=== PATIENT | male | born 1990 | race Hispanic/Latino ===

== ENCOUNTER 2019-06-10 20:37 | Emergency (ER) | payer SELFPAY ==
[2019-06-10 22:04] LABS: Absolute Lymphocytes (CBC) 1.5 K/uL (0.7-4.9); Basophils % 0.2 % (0-1.3); Hematocrit 43.2 % (39.6-49.0); Lymphocytes % 12.9 % (15.3-44.8); MPV 8.1 fL (7.6-11.3); RBC Red Blood Cell Count 4.89 M/uL (4.33-5.43)
[2019-06-10] MEDS ORDERED: NA CHLORIDE 0.9% 1,000 ML ONE ×2 (22:08→22:57)
[2019-06-10] MEDS ORDERED: DICYCLOMINE HCL 10 MG CAP ONE (22:08)
[2019-06-10 22:16] LABS: Bilirubin Direct 0.1 mg/dL (0-0.2); Bilirubin Total 0.4 mg/dL (0.2-1.0); Potassium 3.7 mmol/L (3.5-5.1); Protein, Total 7.3 g/dL (6.4-8.2)
--- NOTE | 2019-06-10 23:33 | ER ---
Nurse's Notes [facility] Name: Cindi Azevedo Age: 28 yrs Sex: Male : 1990 Arrival Date: 06/10/2019 Time: 20:39 Bed 30 Private MD: Diagnosis: Lower abdominal pain, unspecified;Left sided colitis without complications;Nonspecific mesenteric lymphadenitis;Diverticulosis of small intestine without perforation or abscess without bleeding Presentation: 06/10 20:43 Presenting complaint: Patient states: Lower abdominal pain that started today at 1300. aj Transition of care: patient was not received from another setting of care. Onset of symptoms was June 10, 2019. Risk Assessment: Do you want to hurt yourself or someone else? Patient reports no desire to harm self or others. Initial Sepsis Screen: Does the patient meet any 2 criteria? No. Patient's initial sepsis screen is negative. Does the patient have a suspected source of infection? No. Patient's initial sepsis screen is negative. Care prior to arrival: None. 20:43 Method Of Arrival: Ambulatory 20:43 Acuity: MICHELLE 3 aj Triage Assessment: 20:44 General: Appears in no apparent distress. comfortable, Behavior is calm, cooperative, aj appropriate for age. Pain: Complains of pain in suprapubic area. Neuro: Level of Consciousness is awake, alert, obeys commands, Oriented to person, place, time, situation, Appropriate for age. Respiratory: Airway is patent Trachea midline Respiratory effort is even, unlabored, Respiratory pattern is regular, symmetrical. GI: Reports lower abdominal pain, nausea. Derm: Skin is intact, is healthy with good turgor, Skin is pink, warm \T\ dry. normal. Historical: - Allergies: 20:44 No Known Allergies; aj - Home Meds: 20:44 None [Active]; aj - PMHx: 20:44 None; aj - PSHx: 20:44 None; aj - Immunization history:: Adult Immunizations up to date. - Social history:: Smoking status: Patient/guardian denies using tobacco. - Ebola Screening: : Patient negative for fever greater than or equal to 101.5 degrees Fahrenheit, and additional compatible Ebola Virus Disease symptoms Patient denies exposure to infectious person Patient denies travel to an Ebola-affected area in the 21 days before illness onset No symptoms or risks identified at this time. Screenin:37 Abuse screen: Denies threats or abuse. Denies injuries from another. Nutritional rv screening: No deficits noted. Tuberculosis screening: No symptoms or risk factors identified. Fall Risk None identified. Assessment: 21:36 General: Appears in no apparent distress. comfortable, Behavior is calm, cooperative. rv Pain: Complains of pain in abdomen Pain currently is 4 out of 10 on a pain scale. at worst was 8 out of 10 on a pain scale. Quality of pain is described as pressure. Neuro: Level of Consciousness is awake, alert, obeys commands, Oriented to person, place, time, situation. Cardiovascular: Patient's skin is warm and dry. Respiratory: Airway is patent. GI: Bowel sounds present X 4 quads. Abd is soft and non tender X 4 quads. : No signs and/or symptoms were reported regarding the genitourinary system. EENT: No signs and/or symptoms were reported regarding the EENT system. Derm: Skin is intact. Musculoskeletal: No signs and/or symptoms reported regarding the musculoskeletal system. 21:37 GI: Reports nausea. rv 22:15 Reassessment: Patient appears in no apparent distress at this time. Patient and/or rv family updated on plan of care and expected duration. Pain level reassessed. Patient is alert, oriented x 3, equal unlabored respirations, skin warm/dry/pink. 23:19 Reassessment: Patient appears in no apparent distress at this time. Patient and/or rv family updated on plan of care and expected duration. Pain level reassessed. Patient is alert, oriented x 3, equal unlabored respirations, skin warm/dry/pink. patient came back from cT scan. awaiting result. Vital Signs: 20:44 BP 151 / 85; Pulse 82; Resp 16; Temp 98.7; Pulse Ox 100% on R/A; Weight 90.72 kg; aj Height 5 ft. 10 in. (177.80 cm); 22:15 BP 141 / 85; Pulse 74; Resp 15; Pulse Ox 100% on R/A; rv 23:21 BP 127 / 73; Pulse 78; Resp 17; Pulse Ox 100% on R/A; rv 23:46 BP 130 / 78; Pulse 74; Resp 16; Temp 98.5; Pulse Ox 100% on R/A; rv 20:44 Body Mass Index 28.70 (90.72 kg, 177.80 cm) ED Course: 20:39 Patient arrived in ED. do 20:44 Triage completed. aj 20:44 Arm band placed on left wrist. Patient placed in waiting room. aj 21:24 Jessi Villalpando FNP-C [facility]. snw 21:24 German Nayak MD is Attending Physician. snw 21:35 John Palomo, RN is Primary Nurse. rv 21:39 Patient has correct armband on for positive identification. Placed in gown. Bed in low rv position. Call light in reach. Side rails up X 1. Adult w/ patient. Pulse ox on. NIBP on. 21:55 Inserted saline lock: 20 gauge in right antecubital area, using aseptic technique. rv Blood collected. 22:[address] nh 23:04 CT Abd/Pelvis - IV Contrast Only In Process Unspecified. EDMS 23:47 No provider procedures requiring assistance completed. IV discontinued, intact, rv bleeding controlled, No redness/swelling at site. Pressure dressing applied. Administered Medications: 21:55 Drug: NS 0.9% 1000 ml Route: IV; Rate: 1 bolus; Site: right antecubital; mg2 23:48 Follow up: IV Status: Completed infusion rv 21:55 Drug: Bentyl 20 mg Route: PO; mg2 22:27 Follow up: Response: Pain is unchanged, physician notified rv 22:42 Drug: NS 0.9% 1000 ml Route: IV; Rate: 1 bolus; Site: right antecubital; mg2 23:48 Follow up: IV Status: Completed infusion rv Outcome: 23:33 Discharge ordered by . snw 23:47 Discharged to home ambulatory, with family. rv 23:47 Condition: good 23:47 Discharge instructions given to patient, Instructed on discharge instructions, follow up and referral plans. medication usage, Demonstrated understanding of instructions, follow-up care, medications, Prescriptions given X 3. 23:48 Patient left the ED. rv Signatures: Dispatcher [employer] Christie Velez, RN RN Jessi Villalpando FNP-C MD PHYSICIAN DERMATOLOGIST-[facility] Sheila Baker Nathan nj Gardose, Michele, RN RN [facility] John Palomo RN RN rv
--- NOTE | 2019-06-10 23:34 | EDPHYS ---
Physician Documentation [facility] Name: Cindi Azevedo Age: 28 yrs Sex: Male : 1990 Arrival Date: 06/10/2019 Time: 20:39 Bed 30 Private MD: ED Physician German Nayak HPI: 06/10 23:30 This 28 yrs old Male presents to ER via Ambulatory with complaints of snw Abdominal Pain. 23:30 The patient presents with abdominal pain in the left lower quadrant. Onset: The snw symptoms/episode began/occurred suddenly, today. The symptoms do not radiate. Associated signs and symptoms: Pertinent negatives: diarrhea, fever, vomiting. The symptoms are described as constant. Severity of pain: At its worst the pain was moderate in the emergency department the pain is unchanged. The patient has not experienced similar symptoms in the past. The patient has not recently seen a physician. Historical: - Allergies: 20:44 No Known Allergies; aj - Home Meds: 20:44 None [Active]; aj - PMHx: 20:44 None; aj - PSHx: 20:44 None; aj - Immunization history:: Adult Immunizations up to date. - Social history:: Smoking status: Patient/guardian denies using tobacco. - Ebola Screening: : Patient negative for fever greater than or equal to 101.5 degrees Fahrenheit, and additional compatible Ebola Virus Disease symptoms Patient denies exposure to infectious person Patient denies travel to an Ebola-affected area in the 21 days before illness onset No symptoms or risks identified at this time. ROS: 23:30 Constitutional: Negative for fever, chills, and weight loss, Eyes: Negative for injury, snw pain, redness, and discharge, ENT: Negative for injury, pain, and discharge, Neck: Negative for injury, pain, and swelling, Cardiovascular: Negative for chest pain, palpitations, and edema, Respiratory: Negative for shortness of breath, cough, wheezing, and pleuritic chest pain, Back: Negative for injury and pain, : Negative for injury, bleeding, discharge, and swelling, MS/Extremity: Negative for injury and deformity, Skin: Negative for injury, rash, and discoloration, Neuro: Negative for headache, weakness, numbness, tingling, and seizure. 23:30 Abdomen/GI: Positive for abdominal pain. Exam: 21:43 Constitutional: This is a well developed, well nourished patient who is awake, alert, snw and in no acute distress. Head/Face: Normocephalic, atraumatic. Eyes: Pupils equal round and reactive to light, extra-ocular motions intact. Lids and lashes normal. Conjunctiva and sclera are non-icteric and not injected. Cornea within normal limits. Periorbital areas with no swelling, redness, or edema. ENT: Nares patent. No nasal discharge, no septal abnormalities noted. Tympanic membranes are normal and external auditory canals are clear. Oropharynx with no redness, swelling, or masses, exudates, or evidence of obstruction, uvula midline. Mucous membranes moist. Neck: Trachea midline, no thyromegaly or masses palpated, and no cervical lymphadenopathy. Supple, full range of motion without nuchal rigidity, or vertebral point tenderness. No Meningismus. Chest/axilla: Normal chest wall appearance and motion. Nontender with no deformity. No lesions are appreciated. Cardiovascular: Regular rate and rhythm with a normal S1 and S2. No gallops, murmurs, or rubs. Normal PMI, no JVD. No pulse deficits. Respiratory: Lungs have equal breath sounds bilaterally, clear to auscultation and percussion. No rales, rhonchi or wheezes noted. No increased work of breathing, no retractions or nasal flaring. Back: No spinal tenderness. No costovertebral tenderness. Full range of motion. Skin: Warm, dry with normal turgor. Normal color with no rashes, no lesions, and no evidence of cellulitis. MS/ Extremity: Pulses equal, no cyanosis. Neurovascular intact. Full, normal range of motion. Neuro: Awake and alert, GCS 15, oriented to person, place, time, and situation. Cranial nerves II-XII grossly intact. Motor strength 5/5 in all extremities. Sensory grossly intact. Cerebellar exam normal. Normal gait. Psych: Awake, alert, with orientation to person, place and time. Behavior, mood, and affect are within normal limits. 21:43 Abdomen/GI: Inspection: abdomen appears normal, Bowel sounds: normal, Palpation: moderate abdominal tenderness, in the left lower quadrant. Vital Signs: 20:44 BP 151 / 85; Pulse 82; Resp 16; Temp 98.7; Pulse Ox 100% on R/A; Weight 90.72 kg; aj Height 5 ft. 10 in. (177.80 cm); 22:15 BP 141 / 85; Pulse 74; Resp 15; Pulse Ox 100% on R/A; rv 23:21 BP 127 / 73; Pulse 78; Resp 17; Pulse Ox 100% on R/A; rv 23:46 BP 130 / 78; Pulse 74; Resp 16; Temp 98.5; Pulse Ox 100% on R/A; rv 20:44 Body Mass Index 28.70 (90.72 kg, 177.80 cm) aj MDM: 21:28 Patient medically screened. snw 23:35 Data reviewed: vital signs, nurses notes. Data interpreted: Pulse oximetry: on room air snw is 100 %. Interpretation: normal. Counseling: I had a detailed discussion with the patient and/or guardian regarding: the historical points, exam findings, and any diagnostic results supporting the discharge/admit diagnosis, lab results, radiology results, the need for outpatient follow up, to return to the emergency department if symptoms worsen or persist or if there are any questions or concerns that arise at home. Special discussion: Based on the patient's Hx, exam, and Dx evaluation, there is no indication for emergent surgery or inpatient Tx. It is understood by the patient/guardian that if the Sx's persist or worsen they need to return immediately for re-evaluation. Based on the history and exam findings, there is no indication for further emergent testing or inpatient evaluation. I discussed with the patient/guardian the need to see the cleaning team member for further evaluation of the symptoms. I discussed with the patient/guardian the need to see the primary care provider for further evaluation of the symptoms. 06/10 21:43 Order name: Basic Metabolic Panel; Complete Time: 22:32 snw 06/10 21:43 Order name: CBC with Diff; Complete Time: 22:32 snw 06/10 21:43 Order name: Creatinine for Radiology; Complete Time: 22:15 snw 06/10 21:43 Order name: Hepatic Function; Complete Time: 22:32 snw 06/10 21:43 Order name: Lipase; Complete Time: 22:32 snw 06/10 22:33 Order name: CT Abd/Pelvis - IV Contrast Only eva 06/10 21:43 Order name: Labs collected and sent; Complete Time: 21:54 snw Administered Medications: 21:55 Drug: NS 0.9% 1000 ml Route: IV; Rate: 1 bolus; Site: right antecubital; mg2 23:48 Follow up: IV Status: Completed infusion rv 21:55 Drug: Bentyl 20 mg Route: PO; mg2 22:27 Follow up: Response: Pain is unchanged, physician notified rv 22:42 Drug: NS 0.9% 1000 ml Route: IV; Rate: 1 bolus; Site: right antecubital; mg2 23:48 Follow up: IV Status: Completed infusion rv Disposition: 06/11 06:50 Co-signature as Attending Physician, German Nayak MD I agree with the assessment and eva plan of care. Disposition: 06/10/19 23:33 Discharged to Home. Impression: Lower abdominal pain, unspecified, Left sided colitis without complications, Nonspecific mesenteric lymphadenitis, Diverticulosis of small intestine without perforation or abscess without bleeding. - Condition is Stable. - Discharge Instructions: Abdominal Pain, Adult, Diverticulosis, Colonoscopy, Colitis, [place] Diet. - Prescriptions for Bentyl 20 mg Oral Tablet - take 1 tablet by ORAL route every 6 hours As needed; 20 tablet. Flagyl 500 mg Oral Tablet - take 1 tablet by ORAL route every 8 hours for 7 days; 21 tablet. Cipro 500 mg Oral Tablet - take 1 tablet by ORAL route every 12 hours for 7 days; 14 tablet. - Work release form, Medication Reconciliation Form, Thank You Letter, Antibiotic Education, Prescription Opioid Use form. - Follow up: Private Physician; When: 2 - 3 days; Reason: Recheck today's complaints, Continuance of care, Re-evaluation by your physician. Follow up: Emergency Department; When: As needed; Reason: Worsening of condition. Signatures: Dispatcher [employer] Christie Velez RN RN aj Anderson, Corey, MD MD cha Therrien, Shelly, COUNTY DIRECTOR-C COUNTY DIRECTOR-[place] Chi Juarez RN RN John Andrade RN RN rv Corrections: (The following items were deleted from the chart) 06/10 23:48 23:33 06/10/2019 23:33 Discharged to Home. Impression: Lower abdominal pain, rv unspecified; Left sided colitis without complications; Nonspecific mesenteric lymphadenitis; Diverticulosis of small intestine without perforation or abscess without bleeding. Condition is Stable. Forms are Medication Reconciliation Form, Thank You Letter, Antibiotic Education, Prescription Opioid Use. Follow up: Private Physician; When: 2 - 3 days; Reason: Recheck today's complaints, Continuance of care, Re-evaluation by your physician. Follow up: Emergency Department; When: As needed; Reason: Worsening of condition. snw
--- NOTE | 2019-06-11 10:18 | RAD REPORT ---
EXAM DESCRIPTION: CT - Abdomen Pelvis W Contrast - 06/10/2019 11:21 pm CLINICAL HISTORY: Lower abdominal pain. COMPARISON: None. TECHNIQUE: CT scan of the abdomen and pelvis was performed with IV contrast. This exam was performed according to our departmental dose-optimization program, which includes automated exposure control, adjustment of the mA and/or kV according to patient size and/or use of iterative reconstruction techn ique. FINDINGS: The lung bases are clear. No pleural or pericardial effusions. The liver, spleen, pancreas, gallbladder, adrenal glands, and kidneys are unremarkable. There is a pu nctate nonobstructing stone in the left kidney. The pelvic organs are also unremarkable. Colonic diverticulosis with focal wall thickening and inflammatory stranding of the sigmoid colon. No abscess or free air. Normal appendix no small bowel obstruction. Mild mesenteric inflammatory strand ing with multiple prominent lymph nodes, likely reactive. The aorta is normal caliber. The osseous structures are intact. IMPRESSION: Acute sigmoid colitis/diverticulitis without abscess or free air. Electronically signed by: Mychal Estrada MD 06/10/2019 11:14 PM CDT Due to temporary technical issues with the PACS/Fluency reporting system, reports are being signed by the in house radiologist as a courtesy to ensure prompt reporting. The interpreting radiologist is f ully responsible for the content of the report.
== END 2019-06-10 23:48 | disposition home or self-care (01) ==
LOC: ER 20:37
DX: K51.50 Left sided colitis without complications (principal); I88.0 Nonspecific mesenteric lymphadenitis; K57.10 Diverticulosis of small intestine without perforation or abscess without bleeding
CPT/HCPCS: 36415; 74177; 80048; 80076; 83690; 85025; 96360; 96361; 99284; J7030; Q9967